=== PATIENT | male | born 1985 | race Caucasian/White ===

== ENCOUNTER 2024-09-17 18:28 | Emergency (ER) | payer BC, SELFPAY ==
[2024-09-17 18:45] VITALS: BP 137/86; PULSE 98; RESP 16; TEMP 36.8; O2SAT 99
--- NOTE | 2024-09-17 18:58 | ED_ITS ---
HPI - Skin/Abscess/Foreign Bdy General Chief complaint: Skin/Abscess/Foreign Body Stated complaint: middle finger left hand/right index finger/rash Time Seen by Provider: 09/17/24 18:58 Source: patient, RN notes reviewed and old records reviewed Mode of arrival: ambulatory Limitations: no limitations History of Present Illness HPI narrative: Patient presents with multiple skin complaints. He reports that he does bite his fingernails, now has some redness with swelling to the 3rd finger of the left hand and the 2nd digit of the right hand. He reports he has had the redness, swelling, tenderness for less than a week. He is also complaining about a red moist itchy rash to the folds of the groin. He reports this has been present since he went hunting about 1 week ago. He denies any injury or trauma. He denies fever, chills, sweats. Voices no other concerns or complaints at this time. Related Data Home Medications Medication Instructions Recorded Confirmed dextroamphetamine-amphetamine 20 20 mg PO BID 09/17/24 09/17/24 mg tablet sildenafil 100 mg tablet 100 mg PO PRN PRN Erectile 09/17/24 09/17/24 Dysfunction Allergies Allergy/AdvReac Type Severity Reaction Status Date / Time No Known Allergies Allergy Mild Verified 09/17/24 18:34 Review of Systems Review of Systems: All systems reviewed & are unremarkable except as noted in HPI and below Constitutional: Constitutional: Reports no additional constitutional complaints ENT: Reports system reviewed and no additional complaints, except as documented Cardiovascular: Cardiovascular: Reports no additional cardiovascular complaints Respiratory: Respiratory: Reports no additional respiratory complaints Gastrointestinal: Gastrointestinal: Reports no additional gastrointestinal complaints Integumentary/Breasts: Skin/Breast: Reports system reviewed and no additional complaints, except as docu and Reports as per HPI [facility] Comments At the time of my signature, I reviewed and agree with the nursing past medical, surgical, social, and family history. There is no relevant family history pertinent to the patient complaint. Exam Const: General: cooperative, no acute distress, alert and awake Orientation/consciousness: oriented to person, oriented to place and oriented to time HENMT: Head: normal to inspection Mouth: Yes moist mucous membranes Resp: Effort & Inspection: normal respiratory effort and able to speak in co mplete sentences Auscultation: clear to auscultation bilaterally, no crac kles, no rales, no rhonchi and no wheezes Cardio: Palpation: normal PMI Rate: regular rate Rhythm: regular rhythm Heart sounds: S1 normal heart sound present and S2 normal heart sound present Skin: Full body images: 1. Paronychia 2. Paronychia 3. Moist red rash Neuro: General: oriented to person, oriented to place and oriented to time Cranial nerves: Yes CN's II-XII intact bilaterally Psych: Appearance: grossly normal Thought process: Normal thought process present Insight: Good insight present (Psych) Judgement: Good judgement present (Psych) Course Course Level of Care: Express Care Visit Vital Signs Vital signs: Vital Signs Temperature 98.3 F 09/17/24 18:45 Pulse Rate 98 09/17/24 18:45 Respiratory Rate 16 09/17/24 18:45 Blood Pressure 137/86 09/17/24 18:45 Pulse Oximetry 99 09/17/24 18:45 Oxygen Delivery Room Air 09/17/24 18:45 Temperature 98.3 F 09/17/24 18:45 Pulse Rate 98 09/17/24 18:45 Respiratory Rate 16 09/17/24 18:45 Blood Pressure 137/86 09/17/24 18:45 Pulse Oximetry 99 09/17/24 18:45 Oxygen Delivery Room Air 09/17/24 18:45 Reviewed MDM - Skin/Abscess/Foreign Bdy MDM Narrative Medical decision making narrative: Patient with multiple skin complaints, yeast rash to folds. Treat with topicals. Paronychia the bilateral hands. P.o. antibiotics Discharge instructions reviewed with patient, as well as provided in writing per nursing staff. The instructions also include specific and strict return/GO TO THE ER as well as f/u information. All questions have been answered, and the patient deny any further questions with discharge and discharge plan. Some parts of this dictation were generated by voice recognition software and may contain typographical and/or grammatical inaccuracies. Differential Diagnosis Differential diagnosis: Likely abscess of skin or subcutaneous tissue, dermatophytosis, urticaria and contact dermatitis Discharge Plan Discharge Clinical Impression: Paronychia, Yeast dermatitis Patient Disposition: Home, Self-Care Condition: Stable Instructions: Antibiotic Form, Paronychia (ED), Skin Yeast Infection (ED) Additional Instructions: Take medications as prescribed. Follow-up primary care provider. Emergency department for new or worse symptoms Patient Language: [place] Prescriptions: New doxycycline hyclate 100 mg capsule 100 mg PO BID Qty: 20 0RF nystatin-triamcinolone 100,000-0.1 unit/g-% cream 1 applic topical BID Qty: 60 1RF No Action sildenafil 100 mg tablet 100 mg PO PRN PRN (Reason: Erectile Dysfunction) dextroamphetamine-amphetamine 20 mg tablet 20 mg PO BID Follow-up/Referrals: PHYSICIAN NOT ON STAFF,NONSTAFF [Primary Care Provider] - Time of Disposition: 19:08
== END 2024-09-17 19:12 | disposition home or self-care (01) ==
PROVIDERS: Emergency Provider Nurse Practitioner Family
DX: L03.012 Cellulitis of left finger (principal); L03.011 Cellulitis of right finger; B37.2 Candidiasis of skin and nail
CPT/HCPCS: 99203; G0463